=== PATIENT | male | born 1990 ===

== ENCOUNTER 2020-12-27 19:59 | Emergency (ER) | payer OTHER ==
[~2020-12-27] VITALS: Ht 172.7 cm; Wt 59.0 kg
[2020-12-27] MEDS ORDERED: SULF1TAB48 PO (20:10)
[2020-12-27] MEDS ORDERED: MUPI22OI2 TP (20:10)
--- NOTE | 2020-12-27 20:11 | NUR ---
Patient discharged to home in stable condition. Written and verbal after care instructions given. Patient verbalizes understanding of instructions. Stressed follow up or return to ER for worsening s/s. Ambulated from ER with stable gait. All belongings with patient.
[2020-12-27 20:12] VITALS: BP 152/99
== END 2020-12-27 20:12 | disposition home or self-care (01) ==
LOC: ER 20:01
DX: L30.9 Dermatitis, unspecified (principal); Z86.14 Personal history of Methicillin resistant Staphylococcus aureus infection; R00.0 Tachycardia, unspecified; F15.90 Other stimulant use, unspecified, uncomplicated
CPT/HCPCS: A4663